=== PATIENT | female | born 1965 | race Caucasian/White ===

== ENCOUNTER → 2023-02-13 | Emergency (ER) | payer OTHER ==
[~2023-02-13] MED LIST: MORPHINE 2 MG/ML SYR ONE
--- NOTE | 2023-02-13 18:44 | RAD REPORT ---
EXAM DESCRIPTION: CT - Head Brain Wo Cont - 02/13/2023 6:30 pm CLINICAL HISTORY: TRAUMA COMPARISON: No comparisons TECHNIQUE: All CT scans are performed using dose optimization technique as appropriate and may inclu de automated exposure control or mA/KV adjustment according to patient size. FINDINGS: No intracranial hemorrhage, hydrocephalus or extra-axial fluid collection.No areas of brai n edema or evidence of midline shift. Mild chronic small vessel ischemic changes. Trace right maxillary sinus thickening. Right sphenoid sinus air-fluid level. The calvarium is intact . IMPRESSION: No acute intracranial abnormality.
--- NOTE | 2023-02-13 19:05 | RAD REPORT ---
EXAM DESCRIPTION: RAD - Knee Left 3 View - 02/13/2023 6:46 pm CLINICAL HISTORY: PAIN COMPARISON: Knee Right 3 View dated 02/13/2023 FINDINGS/IMPRESSION: No acute fracture. No malalignment. Tricompartmental degenerative changes. Join t space loss in the mediolateral compartments that is probably mild to moderate. Moderate patellofemo ral compartment spurring. A small to moderate knee effusion is present. This may be degenerative in e tiology. .
--- NOTE | 2023-02-13 19:09 | RAD REPORT ---
EXAM DESCRIPTION: RAD - Knee Right 3 View - 02/13/2023 6:46 pm CLINICAL HISTORY: PAIN COMPARISON: No comparisons FINDINGS/IMPRESSION: No acute fracture. No malalignment. Mild to moderate medial and mild lateral co mpartment narrowing. Medial and lateral compartment spurring. Moderate patellofemoral compartment deg enerative changes. No significant effusion.
--- NOTE | 2023-02-13 20:00 | EDPHYS ---
Physician Documentation [facility] Name: Margarette Schmidt Age: 58 yrs Sex: Female : 1965 Arrival Date: 02/13/2023 Time: 17:26 Bed 3 Private MD: ED Physician Kaylynn Peres HPI: 02/13 21:16 This 58 yrs old Female presents to ER via EMS with complaints of Fall Injury, Knee kb Injury. 21:16 Patient is a 58-year-old female who tripped over a toy and fell to her knees. States kb she hit her face on a printer that was near the area. Denies LOC. Reports she is on blood thinners. Reports pain with active range of motion of knees, worse in the left. Historical: - Allergies: 17:28 Phenergan; iw 17:28 sensitive to all narcotics; iw - Home Meds: 17:54 metformin 1,000 mg Oral tablet 1 tab 2 times per day [Active]; Eliquis 2.5 mg oral tl4 tablet 1 tab 2 times per day [Active]; pantoprazole 40 mg oral tablet, delayed release (enteric coated) 1 tab daily [Active]; Jardiance 25 mg oral tablet 1 tab daily [Active]; spironolactone 25 mg Oral tablet 1 tab daily [Active]; aspirin 81 mg Oral tablet, delayed release (enteric coated) 1 tab daily [Active]; albuterol sulfate 90 mcg/actuation Inhl HFA Aerosol Inhaler 1 puffs 6 hours as needed [Active]; amlodipine 10 mg tablet 1 tab daily [Active]; sertraline 100 mg oral tablet 1 tabs daily [Active]; atorvastatin 20 mg oral tablet 1 tab daily [Active]; carvedilol 6.25 mg oral tablet 1 tab 2 times per day [Active]; - PMHx: 17:28 Diabetes mellitus; Hypertensive disorder; iw - Immunization history:: Adult Immunizations up to date. - Social history:: Smoking status: Patient denies any tobacco usage or history of. ROS: 21:15 Constitutional: Negative for fever, chills, and weight loss, kb 21:15 MS/extremity: Positive for decreased range of motion, pain, swelling, tenderness, of the right knee and left knee, 21:15 All other systems are negative, Exam: 21:15 Constitutional: This is a well developed, well nourished patient who is awake, alert, kb and in no acute distress. Head/Face: Normocephalic, atraumatic. ENT: Moist Mucous membranes Cardiovascular: Regular rate Respiratory: Respirations even and unlabored. No increased work of breathing. Talking in full sentences Abdomen/GI: Soft, non-tender. No distention Neuro: Awake and alert, GCS 15, oriented to person, place, time, and situation. Moves all extremities. Normal gait. 21:15 Musculoskeletal/extremity: Extremities: grossly normal except: noted in the right knee and left knee: contusion, decreased ROM, ecchymosis, pain, swelling, tenderness, ROM: limited active range of motion due to pain, Circulation is intact in all extremities. Sensation intact. Weight bearing: can bear weight with assistance only, 21:15 Skin: injury, abrasion(s), very small abrasion noted, of the right eye, contusion(s), that are superficial, of the right eye, Vital Signs: 17:22 BP 152 / 105; Pulse 73; Resp 20; Pulse Ox 95% on R/A; Pain 8/10; tl4 17:22 BP 127 / 86; Pulse 75; Resp 20; Pulse Ox 94% ; Pain 8/10; tl4 17:28 BP 152 / 92; Pulse 65; Resp 17; Temp 99.2; Pulse Ox 96% ; Weight 94.8 kg; Height 5 ft. iw 6 in. ; Pain 10/10; 18:20 BP 147 / 69; Pulse 75; Resp 20; Pulse Ox 99% on R/A; tl4 19:30 BP 165 / 87; Pulse 77; Resp 17; Pulse Ox 99% on R/A; tl4 20:09 BP 174 / 89; Pulse 76; Resp 16; Pulse Ox 99% on R/A; tl4 17:28 Body Mass Index 33.73 (94.80 kg, 167.64 cm) iw 17:22 Pain Scale: Adult tl4 17:22 Pain Scale: Adult tl4 17:28 Pain Scale: Adult iw [place] Coma Score: 17:22 Eye Response: spontaneous(4). Motor Response: obeys commands(6). Verbal Response: tl4 oriented(5). Total: 15. MDM: 17:32 Patient medically screened. kb 21:16 Differential diagnosis: closed head injury, contusion, fracture, sprain, strain. Data kb reviewed: vital signs, nurses notes. Historians other than the Patient: EMS: [facility]. Counseling: I had a detailed discussion with the patient and/or guardian regarding the historical points, exam findings, and any diagnostic results supporting the discharge/admit diagnosis, radiology results, the need for outpatient follow up, a orthopedic surgeon, to return to the emergency department if symptoms worsen or persist or if there are any questions or concerns that arise at home. 02/13 17:35 Order name: Knee Left 3 View XRAY; Complete Time: 19:07 kb 02/13 17:35 Order name: Knee Right 3 View XRAY; Complete Time: 19:10 kb 02/13 17:35 Order name: CT Head Brain wo Cont; Complete Time: 18:54 kb 02/13 20:00 Order name: Knee Immobilizer; Complete Time: 20:37 kb 02/13 20:00 Order name: Crutches; Complete Time: 20:37 kb Administered Medications: 17:52 Drug: morphine IVP or IV 2 mg IVP once over 4 mins Route: IVP; Infused Over: 4 mins; tl4 Site: left wrist; 18:22 Follow up: Response: Pain is decreased tl4 Disposition Summary: 02/13/23 19:59 Discharge Ordered Notes: Location: Home kb Condition: Stable kb Diagnosis - Unspecified injury of head, initial encounter kb - Contusion of right knee kb - Contusion of left knee kb Followup: kb - With: Emergency Department - When: As needed - Reason: Worsening of condition Followup: kb - With: Private Physician - When: 2 - 3 days - Reason: Recheck today's complaints, Continuance of care, Re-evaluation by your physician Discharge Instructions: - Discharge Summary Sheet kb - Contusion, [id number] kb - Head Injury, Adult, [id number] kb Forms: - Medication Reconciliation Form kb - Thank You Letter kb - Antibiotic Education kb - Prescription Opioid Use kb - Patient Portal Instructions kb - Leadership Thank You Letter kb Prescriptions: - Diclofenac Sodium 75 mg Oral tablet, delayed release (enteric coated) - take 1 tablet ORAL route 2 times per day As needed; 30 tablet; Refills: 0, kb Product Selection Permitted Addendum: 02/15/2023 07:03 Co-signature as Attending Physician, Kaylynn Ja MD I agree with the assessment and g b1 plan of care. I reviewed the patient's care provided by the Advanced Practice Provider and agree with the diagnosis and treatment plan. Signatures: Dispatcher [employer] Kamala Ngo, PACKAGING SUPERVISOR-C PACKAGING SUPERVISOR-Magui Barrios, RN RN Kaylynn Pereyra MD MD gb1 [facility], [place] tl4
--- NOTE | 2023-02-13 20:00 | ER ---
Nurse's Notes [facility] Name: Margarette Schmidt Age: 58 yrs Sex: Female : 1965 Arrival Date: 02/13/2023 Time: 17:26 Bed 3 Private MD: Diagnosis: Unspecified injury of head, initial encounter;Contusion of right knee;Contusion of left knee Presentation: 02/13 17:28 Chief complaint: Patient states: Tripped over toy, fell onto B knees. Hit R side of iw face on printer. No LOC. Abrasions noted R knee and R face. L knee has significant pain EMS states: VSS. FS 121. 22g L hand, fentanyl 50 MCG and Zofran 4 MG IV given. Coronavirus screen: Client denies travel out of the [place] in the last 14 days. At this time, the client does not indicate any symptoms associated with coronavirus-19. Ebola Screen: Patient denies travel to an Ebola-affected area in the 21 days before illness onset. Initial Sepsis Screen: Does the patient meet any 2 criteria? No. Patient's initial sepsis screen is negative. Does the patient have a suspected source of infection? Yes: Bone or joint infection. Risk Assessment: Do you want to hurt yourself or someone else? Patient reports no desire to harm self or others. Onset of symptoms was February 13, 2023. 17:28 Method Of Arrival: EMS iw 17:28 Acuity: DERRELL 3 iw Triage Assessment: 17:31 General: Appears uncomfortable, Behavior is calm, cooperative, appropriate for age. iw Pain: Complains of pain in L knee Quality of pain is described as aching. Derm: Reports abrasions R knee and R side of face. Musculoskeletal: Reports pain in B knees. Injury Description: Head injury Bruise. Historical: - Allergies: 17:28 Phenergan; iw 17:28 sensitive to all narcotics; iw - Home Meds: 17:54 metformin 1,000 mg Oral tablet 1 tab 2 times per day [Active]; Eliquis 2.5 mg oral tl4 tablet 1 tab 2 times per day [Active]; pantoprazole 40 mg oral tablet, delayed release (enteric coated) 1 tab daily [Active]; Jardiance 25 mg oral tablet 1 tab daily [Active]; spironolactone 25 mg Oral tablet 1 tab daily [Active]; aspirin 81 mg Oral tablet, delayed release (enteric coated) 1 tab daily [Active]; albuterol sulfate 90 mcg/actuation Inhl HFA Aerosol Inhaler 1 puffs 6 hours as needed [Active]; amlodipine 10 mg tablet 1 tab daily [Active]; sertraline 100 mg oral tablet 1 tabs daily [Active]; atorvastatin 20 mg oral tablet 1 tab daily [Active]; carvedilol 6.25 mg oral tablet 1 tab 2 times per day [Active]; - PMHx: 17:28 Diabetes mellitus; Hypertensive disorder; iw - Immunization history:: Adult Immunizations up to date. - Social history:: Smoking status: Patient denies any tobacco usage or history of. Screenin:42 [facility] ED Fall Risk Assessment (Adult) History of falling in the last 3 months, tl4 including since admission Yes- fall prone (multiple falls) (3 pts) Confusion or Disorientation No (0 pts) Intoxicated or Sedated No (0 pts) Impaired Gait No (0 pts) Mobility Assist Device Used No (0 pt) Altered Elimination No (0 pt) Score/Fall Risk Level 3 or more points = High Risk Oriented to surroundings, Maintained a safe environment, Educated pt \T\ family on fall prevention, incl call for assistance when getting out of bed, Assessed \T\ reinforced patient's understanding of fall precautions, Provided non-skid footwear, Hourly rounding (assess needs \T\ fall precautionary measures) done, Used ambulatory aids as needed (educated on \T\ assisted with), Used gait belt as appropriate. Abuse screen: Denies threats or abuse. Denies injuries from another. Nutritional screening: No deficits noted. Tuberculosis screening: No symptoms or risk factors identified. Assessment: 17:40 General: Appears uncomfortable, Behavior is cooperative. Pain: Complains of pain in tl4 left knee Pain radiates to up the back of her left leg Pain at worst was 8 out of 10 on a pain scale. Neuro: No deficits noted. Cardiovascular: No deficits noted. Respiratory: No deficits noted. GI: No deficits noted. : No deficits noted. EENT: No deficits noted. Vital Signs: 17:22 BP 152 / 105; Pulse 73; Resp 20; Pulse Ox 95% on R/A; Pain 8/10; tl4 17:22 BP 127 / 86; Pulse 75; Resp 20; Pulse Ox 94% ; Pain 8/10; tl4 17:28 BP 152 / 92; Pulse 65; Resp 17; Temp 99.2; Pulse Ox 96% ; Weight 94.8 kg; Height 5 ft. iw 6 in. ; Pain 10/10; 18:20 BP 147 / 69; Pulse 75; Resp 20; Pulse Ox 99% on R/A; tl4 19:30 BP 165 / 87; Pulse 77; Resp 17; Pulse Ox 99% on R/A; tl4 20:09 BP 174 / 89; Pulse 76; Resp 16; Pulse Ox 99% on R/A; tl4 17:28 Body Mass Index 33.73 (94.80 kg, 167.64 cm) iw 17:22 Pain Scale: Adult tl4 17:22 Pain Scale: Adult tl4 17:28 Pain Scale: Adult iw [place] Coma Score: 17:22 Eye Response: spontaneous(4). Motor Response: obeys commands(6). Verbal Response: tl4 oriented(5). Total: 15. ED Course: 17:27 Patient arrived in ED. iw 17:28 Arm band placed on Patient placed in an exam room, on a stretcher. iw 17:31 Triage completed. iw 17:32 [facility] Bullock FNP-C [facility] kb 17:32 Kaylynn Peres MD is Attending Physician. kb 17:43 Patient has correct armband on for positive identification. Placed in gown. Bed in low tl4 position. Call light in reach. Side rails up X2. Provided Education on: ED process. Client placed on continuous cardiac and pulse oximetry monitoring. NIBP monitoring applied. Door closed. Lights dimmed. Warm blanket given. 17:44 No provider procedures requiring assistance completed. tl4 17:44 Maintain EMS IV. Dressing intact. Good blood return noted. Site clean \T\ dry. Gauge \T\ tl 4 site: 22g left wrist. 18:31 CT Head Brain wo Cont In Process Unspecified. EDMS 18:48 Knee Left 3 View XRAY In Process Unspecified. EDMS 18:48 Knee Right 3 View XRAY In Process Unspecified. EDMS 20:44 IV discontinued, intact, bleeding controlled, No redness/swelling at site. Pressure jj7 dressing applied. Administered Medications: 17:52 Drug: morphine IVP or IV 2 mg IVP once over 4 mins Route: IVP; Infused Over: 4 mins; tl4 Site: left wrist; 18:22 Follow up: Response: Pain is decreased tl4 Medication: 17:42 VIS not applicable for this client. tl4 Outcome: 19:59 Discharge ordered by . ned 20:44 Discharged to home via wheelchair, jj7 20:44 Condition: good 20:44 Discharge instructions given to patient, Instructed on discharge instructions, medication usage, control, Demonstrated understanding of instructions, follow-up care, crutch walking, Prescriptions given X 1, 20:45 Patient left the ED. jj7 Signatures: Dispatcher [employer] EDMS Kamala Bullock, REMOTELY PILOTED VEHICLE CONTROLLER-C REMOTELY PILOTED VEHICLE CONTROLLER-Magui Barrios, RN Miriam Silva RN RN jj7 [place], [place] tl4 Corrections: (The following items were deleted from the chart) 17:54 17:42 BP 152 / 105; Pulse 73bpm; Resp 20bpm; Pulse Ox 95% RA; Pain 8/10, Adult; tl4 tl4 17:54 17:42 GCS: 15, tl4 tl4
[2023-02-13 23:36] VITALS: TEMP 99.2; O2SAT 99
[2023-02-13 23:46] VITALS: BP 174/89
== END ==
LOC: ER 17:26
DX: S80.02XA Contusion of left knee, initial encounter (principal); S80.01XA Contusion of right knee, initial encounter; S09.90XA Unspecified injury of head, initial encounter; W01.198A Fall on same level from slipping, tripping and stumbling with subsequent striking against other object, initial encounter; E11.9 Type 2 diabetes mellitus without complications; I10 Essential (primary) hypertension; Z79.82 Long term (current) use of aspirin; Z79.84 Long term (current) use of oral hypoglycemic drugs; Z79.899 Other long term (current) drug therapy
CPT/HCPCS: 70450; 73562 ×2; 96374; 99284; J2270

== ENCOUNTER 2024-01-29 10:06 | Inpatient (IN) | payer OTHER ==
[2024-01-29] MEDS ORDERED: FENTANYL CITR 100 MCG/2 ML ONE (10:47)
[2024-01-29] MEDS ORDERED: ONDANSETRON 4 MG/2 ML VIAL ONE ×2 (10:48→15:35)
[2024-01-29] MEDS ORDERED: FAMOTIDINE 20 MG/2 ML VIAL IV ONE (10:48)
[2024-01-29] MEDS ORDERED: NA CHLORIDE 0.9% 3,000 ML ONE (10:48)
[2024-01-29 10:54] LABS: Absolute Basophils 0.1 K/uL (0-0.5); Absolute Lymphocytes (CBC) 0.8 K/uL (0.7-4.9); Absolute Neutrophil 15.4 K/uL (1.8-8.0); Basophils % 0.7 % (0-1.3); Eosinophils % 0.2 % (0-4.4); Hematocrit 42.5 % (36.0-45.0); Hemoglobin 12.9 g/dL (12.0-15.0); Lymphocytes % 4.7 % (15.3-44.8); MCH 23.6 pg (27.0-35.0); MCHC 30.4 g/dL (32.0-36.0); MCV 77.8 fL (80-100); MPV 9.1 fL (7.6-11.3); Monocytes % 5.6 % (3.3-12.3); Neutrophils % 88.8 % (41.7-73.7); Platelets 215 thou/uL (152-406); Protime INR 0.98; RBC Red Blood Cell Count 5.47 M/uL (3.86-4.86); Red Cell Distribution Width 16.6 % (12.1-15.2)
[2024-01-29 10:55] LABS: Blood Morphology Comment NOT SEEN (NOT SEEN); Platelet Estimate ADEQ; White Blood Cell Scan OK (OK)
[2024-01-29 11:10] LABS: ALT/SGPT 24 U/L (13-56); AST/SGOT 24 U/L (15-37); Albumin 3.9 g/dL (3.4-5.0); Alkaline Phosphatase 110 U/L (45-117); BUN Blood Urea Nitrogen 9 mg/dL (7-18); Bicarbonate 25 mEq/L (21-32); Bilirubin Total 0.4 mg/dL (0.2-1.0); Globulin 4.1 g/dL (2.3-3.5); Glomerular Filtration Rate 87 ml/min (=/>90); Glucose Level 185 mg/dL (74-106); Lipase 33 U/L (13-75); Magnesium 1.6 mg/dL (1.6-2.4); NT PRO-BNP 360 pg/mL (<125); Sodium Level 135 mEq/L (136-145); Troponin High Sensitivity 5.7 pg/mL (<58.9)
[2024-01-29 11:16] LABS: Bilirubin Direct < 0.2 mg/dL (0-0.2); Bilirubin Indirect, Calculated 0.2 mg/dL (0.2-0.8)
--- NOTE | 2024-01-29 11:16 | RAD REPORT ---
EXAM: Right upper quadrant ultrasound. CLINICAL HISTORY: ABD PAIN COMPARISON: None. FINDINGS: Gallbladder: Normal. Bile ducts: No intrahepatic or extrahepatic biliary dilatation. Common bile duct measures 4 mm. Limited imaging of the liver shows no concerning finding. IMPRESSION: Unremarkable exam.
--- NOTE | 2024-01-29 11:17 | RAD REPORT ---
EXAMINATION: ONE VIEW CHEST XR CLINICAL INDICATION: COUGH TECHNIQUE: Frontal chest projection is submitted. Examination is limited by patient positioning and t echnique. COMPARISON: No prior exam. FINDINGS: Mild patchy opacity is noted in the left lung, greatest in the left perihilar region suspicious for i nfection/pneumonia. The lungs are otherwise clear. The heart is upper limit of normal in size. No displaced fractures identified.
--- NOTE | 2024-01-29 11:20 | RAD REPORT ---
EXAM: CT CHEST, ABDOMEN AND PELVIS WITHOUT CONTRAST CLINICAL INDICATION: PAIN TECHNIQUE: CT chest, abdomen and pelvis was performed without contrast, as per department protocol. A xial, sagittal and coronal reconstructions were obtained. One or more of the following dose reduction techniques were used: Automated exposure control, adjustment of the mA and/or kV according to patient size, and/or iterative reconstruction. Unless otherwise specified, incidental findings do not require dedicated imaging follow-up. Examination is limited by the lack of intravenous contrast material. COMPARISON: No prior exam. FINDINGS: LUNGS: Small area of lung consolidation is seen in the lingula suspicious for possible pneumonia. The re is a small nodular component slightly superiorly measuring 9 mm. Lungs otherwise clear. PLEURA: No pleural effusion. No pneumothorax. MEDIASTINUM AND LYMPH NODES: No mediastinal mass or fluid collection. Normal size mediastinal, hilar, and axillary lymph nodes. OSSEOUS STRUCTURES AND CHEST WALL: Intact. LIVER: There is a mild nodular contour to the liver. Grossly unremarkable gallbladder. PANCREAS: No mass, ductal dilation, or gaetano-pancreatic fluid. SPLEEN: Normal size. No focal lesion. ADRENALS: Normal; no mass. KIDNEYS: Normal size and contour. No hydronephrosis. URINARY BLADDER: Normal contour. GASTROINTESTINAL TRACT: No bowel obstruction, free air, significant free fluid or abscess. Mild sig moid diverticulosis coli without diverticulitis. APPENDIX: Appendix not visualized, but no inflammatory changes in region of appendix. LYMPH NODES: No lymphadenopathy. MUSCULOSKELETAL: Mild lower lumbar spondylosis. OTHER: IMPRESSION: Small area of lung consolidation in lingula could be infection/pneumonia. Mild liver cirrhosis.
[2024-01-29] MEDS ORDERED: ACETAMINOPHEN 500 MG TAB ONE (11:39)
[2024-01-29] MEDS ORDERED: PIPERACIL/TAZO 3.375 GM VIAL IV ONE (11:40)
[2024-01-29] MEDS ORDERED: NA CHLORIDE 0.9% 100 ML ONE (11:40)
--- NOTE | 2024-01-29 13:34 | EDPHYS ---
Physician Documentation [facility] Name: Margarette Schmidt Age: 58 yrs Sex: Female : 1965 Arrival Date: 01/29/2024 Time: 10:06 Bed 7 Private MD: ED Physician Raymundo Díaz HPI: 01/28 13:24 This 58 yrs old Female presents to ER via EMS with complaints of Nausea. eze 13:24 The patient presents to the emergency department with nausea, vomiting, that is eze continuous. Onset: The symptoms/episode began/occurred this morning, today. Historical: - Allergies: 10:10 Phenergan; aa5 10:10 sensitive to all narcotics; aa5 - PMHx: 10:10 diabetes mellitus; Hypertensive disorder; Chronic knee pain (Unknown); aa5 - Immunization history:: Adult Immunizations up to date. - Infectious Disease History:: Denies. - Family history:: not pertinent. - Social history:: Smoking status: Patient denies any tobacco usage or history of. ROS: 13:24 Eyes: Negative for injury, pain, redness, and discharge, ENT: Negative for injury, eze pain, and discharge, Neck: Negative for injury, pain, and swelling, Back: Negative for injury and pain, : Negative for injury, bleeding, discharge, and swelling, MS/Extremity: Negative for injury and deformity, Skin: Negative for injury, rash, and discoloration, Neuro: Negative for headache, weakness, numbness, tingling, and seizure, Psych: Negative for depression, anxiety, suicide ideation, homicidal ideation, and hallucinations, Allergy/Immunology: Negative for hives, rash, and allergies, Endocrine: Negative for neck swelling, polydipsia, polyuria, polyphagia, and marked weight changes, 13:24 Constitutional: Positive for body aches, chills, fatigue, fever, malaise, 13:24 Cardiovascular: Positive for palpitations, 13:24 Respiratory: Positive for cough, "sounds productive", 13:24 Abdomen/GI: Positive for abdominal pain, nausea and vomiting, of the epigastric area and right upper quadrant, 13:24 Neuro: Positive for dizziness, weakness, Exam: 13:24 Constitutional: This is a well developed, well nourished patient who is awake, alert, eze and in no acute distress. Head/Face: Normocephalic, atraumatic. Eyes: Pupils equal round and reactive to light, extra-ocular motions intact. Lids and lashes normal. Conjunctiva and sclera are non-icteric and not injected. Cornea within normal limits. Periorbital areas with no swelling, redness, or edema. ENT: Nares patent. No nasal discharge, no septal abnormalities noted. Tympanic membranes are normal and external auditory canals are clear. Oropharynx with no redness, swelling, or masses, exudates, or evidence of obstruction, uvula midline. Mucous membranes moist. Neck: Trachea midline, no thyromegaly or masses palpated, and no cervical lymphadenopathy. Supple, full range of motion without nuchal rigidity, or vertebral point tenderness. No Meningismus. Chest/axilla: Normal chest wall appearance and motion. Nontender with no deformity. No lesions are appreciated. Back: No spinal tenderness. No costovertebral tenderness. Full range of motion. Female : Normal external genitalia. Skin: Warm, dry with normal turgor. Normal color with no rashes, no lesions, and no evidence of cellulitis. MS/ Extremity: Pulses equal, no cyanosis. Neurovascular intact. Full, normal range of motion., bilateral aka Neuro: Awake and alert, GCS 15, oriented to person, place, time, and situation. Cranial nerves II-XII grossly intact. Motor strength 5/5 in all extremities. Sensory grossly intact. Cerebellar exam normal. Normal gait. Psych: Awake, alert, with orientation to person, place and time. Behavior, mood, and affect are within normal limits. 13:24 Cardiovascular: Rate: tachycardic, actual rate is 105 bpm, Rhythm: regular, Pulses: Pulses are 4+ in bilateral radial, brachial, femoral, popliteal, posterior tibial and and dorsalis pedis arteries.. Heart sounds: normal, Edema: is not appreciated, JVD: is not appreciated, 13:24 ECG was reviewed by the Attending Physician. Vital Signs: 10:10 BP 176 / 98; Pulse 105; Resp 18 S; Temp 99(O); Pulse Ox 95% on R/A; aa5 10:38 BP 185 / 96 LA; aa5 10:41 Weight 92.99 kg; Height 5 ft. 6 in. ; aa5 10:41 BP 174 / 95 RA; Pulse Ox 89% on R/A; aa5 10:43 Pulse Ox 95% on 3 lpm NC; aa5 11:19 BP 155 / 82; Pulse 110; Resp 24 S; Temp 103(O); Pulse Ox 99% on 3 lpm NC; aa5 12:33 BP 143 / 66; Pulse 105; Resp 18 S; Temp 100(O); Pulse Ox 98% on 3 lpm NC; aa5 13:30 BP 146 / 72; Pulse 103; Resp 17 S; Pulse Ox 99% on 3 lpm NC; aa5 14:00 BP 122 / 79; Pulse 96; Resp 20 S; Temp 99.5(O); Pulse Ox 97% on 3 lpm NC; aa5 15:40 BP 122 / 66; Pulse 93; Resp 18 S; Temp 99(O); Pulse Ox 96% on 2 lpm NC; aa5 16:57 BP 113 / 61; Pulse 89; Resp 16 S; Pulse Ox 97% on 2 lpm NC; aa5 17:00 BP 127 / 57; Pulse 88; Resp 18; Pulse Ox 97% on 2 lpm NC; al5 18:00 BP 116 / 60; Pulse 83; Resp 17; Pulse Ox 96% on 2 lpm NC; al5 19:00 BP 128 / 62; Pulse 85; Resp 17; Pulse Ox 98% on 2 lpm NC; al5 20:00 BP 124 / 60; Pulse 85; Resp 18; Pulse Ox 98% on 2 lpm NC; al5 10:41 Body Mass Index 33.09 (92.99 kg, 167.64 cm) aa5 MDM: 10:08 Medical Screening Exam initiated eze 13:27 Antibiotic administration: Rocephin and Zithromax given. Differential diagnosis: [facility] asthma, Bronchitis CHF exacerbation, Chronic Obstructive Pulmonary Disease Nonspecific abd pain, gastritis, cholecystitis, pancreatitis, gastroenteritis, pneumonia, pulmonary edema, reactive airway disease, Sepsis Unstable Angina. Immunization status: Influenza vaccine: within last 5 years. Data reviewed: vital signs, nurses notes, lab test result(s), EKG, radiologic studies, CT scan, plain films, ultrasound. Consideration of Admission/Observation Patient was admitted/placed on observation. Escalation of care including admission/observation considered. I considered the following discharge prescriptions or medication management in the emergency department Medications were administered in the Emergency Department. See MAR. Independent interpretation of the following test(s) in the Emergency Department EKG: See my EKG interpretation above. Test considered but Not performed: Ultrasound no mrcp. Historians other than the Patient: pt well informed. Care significantly affected by the following chronic conditions: Diabetes, Hypertension, Obesity, knee pain. Counseling: I had a detailed discussion with the patient and/or guardian regarding the historical points, exam findings, and any diagnostic results supporting the discharge/admit diagnosis, lab results, radiology results, the need for further work-up and treatment in the hospital. 14:31 Post IV fluid administration reassessment for Sepsis: Client prescribed 30 mL/kg IVF. [facility] Sepsis focused reassessment complete. 01/28 10:15 Order name: Basic Metabolic Panel; Complete Time: 13:19 [facility] 01/28 10:15 Order name: CBC with Diff; Complete Time: 10:56 [facility] 01/28 10:15 Order name: LFT's; Complete Time: 13:19 [facility] 01/28 10:15 Order name: Magnesium; Complete Time: 13:19 [facility] 01/28 10:15 Order name: NT PRO-BNP; Complete Time: 13:19 [facility] 01/28 10:15 Order name: PT-INR; Complete Time: 10:56 [facility] 01/28 10:15 Order name: Troponin HS; Complete Time: 13:19 [facility] 01/28 10:15 Order name: Lipase; Complete Time: 13:19 [facility] 01/28 10:15 Order name: Urinalysis w/ reflexes; Complete Time: 15:15 [facility] 01/28 10:56 Order name: CBC Smear Scan; Complete Time: 10:56 [facility] 01/28 10:57 Order name: Blood Culture Adult (2) [facility] 01/28 10:57 Order name: Lactate w/ 2H reflex if indic.; Complete Time: 13:19 [facility] 01/28 13:22 Order name: Flu; Complete Time: 15:15 [facility] 01/28 13:22 Order name: SARS RAPID; Complete Time: 15:15 [facility] 01/28 14:45 Order name: T4 Free [facility] 01/28 14:45 Order name: Thyroid Stimulating Hormone [facility] 01/28 14:45 Order name: Basic Metabolic Panel [facility] 01/28 14:45 Order name: Basic Metabolic Panel [facility] 01/28 14:46 Order name: Basic Metabolic Panel [facility] 01/28 14:46 Order name: Basic Metabolic Panel [facility] 01/28 14:46 Order name: Basic Metabolic Panel [facility] 01/28 14:46 Order name: Basic Metabolic Panel [facility] 01/28 14:46 Order name: Basic Metabolic Panel [facility] 01/28 14:46 Order name: Basic Metabolic Panel EDMS 01/28 14:46 Order name: CBC with Automated Diff [facility] 01/28 14:46 Order name: CBC with Automated Diff [facility] 01/28 14:46 Order name: CBC with Automated Diff EDMS 01/28 14:46 Order name: CBC with Automated Diff EDMS 01/28 14:46 Order name: CBC with Automated Diff EDMS 01/28 14:46 Order name: CBC with Automated Diff EDMS 01/28 14:46 Order name: CBC with Automated Diff EDMS 01/28 14:46 Order name: CBC with Automated Diff EDMS 01/28 14:46 Order name: Magnesium EDMS 01/28 14:46 Order name: Magnesium EDMS 01/28 14:46 Order name: Magnesium EDMS 01/28 14:46 Order name: Magnesium EDMS 01/28 14:46 Order name: Magnesium EDMS 01/28 14:46 Order name: Magnesium EDMS 01/28 14:46 Order name: Magnesium EDMS 01/28 14:46 Order name: Magnesium EDMS 01/28 14:46 Order name: Phosphorus EDMS 01/28 14:46 Order name: Phosphorus EDMS 01/28 14:46 Order name: Phosphorus EDMS 01/28 14:46 Order name: Phosphorus EDMS 01/28 14:46 Order name: Phosphorus EDMS 01/28 14:46 Order name: Phosphorus EDMS 01/28 14:46 Order name: Phosphorus EDMS 01/28 14:46 Order name: Phosphorus EDMS 01/28 14:46 Order name: Troponin High Sensitivity EDMS 01/28 14:46 Order name: Troponin High Sensitivity EDMS 01/28 14:46 Order name: Troponin High Sensitivity EDMS 01/28 10:15 Order name: XRAY Chest (1 view); Complete Time: 13:19 [facility] 01/28 10:37 Order name: CT Chest Abdomen Pelvis W/O Contrast; Complete Time: 13:19 eze 01/28 10:37 Order name: US Abdomen Limited; Complete Time: 13:19 eze 01/28 10:15 Order name: Cardiac monitoring; Complete Time: 10:37 [facility] 01/28 10:15 Order name: EKG - Nurse/Tech; Complete Time: 10: [facility] 01/28 10:15 Order name: IV Saline Lock; Complete Time: : [facility] 01/28 10:15 Order name: Labs collected and sent; Complete Time: 10: [facility] 01/28 10:15 Order name: O2 Per Protocol; Complete Time: : [facility] 01/28 10:15 Order name: O2 Sat Monitoring; Complete Time: : [facility] 01/28 10:37 Order name: Bilateral blood pressure; Complete Time: 10:41 [facility] EC:24 Rate is 105 beats/min. Rhythm is regular. QRS Norris is Normal. GA interval is normal. eze QRS interval is normal. QT interval is normal. No Q waves. T waves are Normal. No ST changes noted. Clinical impression: Sinus tachycardia and No evidence of ischemia. Interpreted by me. Reviewed by me. Administered Medications: 10:37 Not Given (Duplicate Order): ns 0.9% 1000 ml IV at 1000 ml once; to be given as a bolus eze over 60 minutes 11:16 Drug: Ondansetron IVP 4 mg IVP once; over 2 minutes Route: IVP; Site: right forearm; aa5 11:20 Follow up: Response: No adverse reaction aa5 11:16 Drug: Famotidine IVP 20 mg IVP once; dilute with 10 mL 0.9% NaCl; give over 2 minutes aa5 Route: IVP; Site: right forearm; 11:20 Follow up: Response: No adverse reaction aa5 11:16 Drug: fentaNYL (PF) IVP 50 mcg IVP once Route: IVP; Site: right forearm; aa5 11:20 Follow up: Response: No adverse reaction aa5 11:16 Drug: NS 0.9% IV (30 ml/kg) 30 ml/kg IV at bolus once; Sepsis Protocol; to be given as aa5 a bolus over 90 minutes Route: IV; Rate: bolus; Site: right forearm; 12:46 Follow up: IV Status: Completed infusion; IV Intake: 2789ml aa5 11:25 CANCELLED (Duplicate Order): acetaminophensuppository 650 mg GA once eze 11:42 Drug: Acetaminophen PO 1000 mg PO once Route: PO; aa5 12:34 Follow up: Response: Temperature is decreased aa5 13:40 Drug: Piperacillin-Tazobactam IVPB 3.375 grams IVPB once over 60 mins; (mix in NS 100 aa5 mL) Route: IVPB; Infused Over: 60 mins; Site: right forearm; 14:10 Follow up: Response: No adverse reaction aa5 14:40 Follow up: Response: No adverse reaction; IV Status: Completed infusion aa5 14:41 Drug: Zithromax IVPB 500 mg IVPB once over 1 hrs; mix in 250 mL NS Route: IVPB; Infused aa5 Over: 1 hrs; Site: right forearm; 15:41 Follow up: IV Status: Completed infusion; IV Intake: 250ml aa5 14:41 Drug: Magnesium Sulfate IVPB 2 grams IVPB once over 2 hrs Route: IVPB; Infused Over: 2 aa5 hrs; Site: right forearm; 16:41 Follow up: IV Status: Completed infusion aa5 15:40 Drug: Solu-CORTEF IVP 100 mg IVP once Route: IVP; Site: right forearm; aa5 16:00 Follow up: Response: No adverse reaction aa5 15:46 Drug: morphine IVP or IV 2 mg IVP once over 4 mins Route: IVP; Infused Over: 4 mins; aa5 Site: right forearm; 16:00 Follow up: Response: No adverse reaction aa5 15:46 Drug: Ondansetron IVP 4 mg IVP once; over 2 minutes Route: IVP; Site: right forearm; aa5 16:00 Follow up: Response: No adverse reaction aa5 Disposition Summary: 01/29/24 13:34 Hospitalization Ordered Notes: Hospitalization Status: Inpatient Admission eze Provider: Memo Ng cha Condition: Fair eze Problem: new eze Symptoms: have improved eze Bed/Room Type: Standard eze Location: Telemetry/MedSurg (Inpatient)(01/29/24 18:47) ja1 Room Assignment: [facility](01/29/24 18:47) ja Diagnosis - Fever, unspecified eze - Pneumonia due to other specified bacteria eze - Other malaise and fatigue eze - Elevated white blood cell count eze Forms: - Medication Reconciliation Form eze - SBAR form eze - Leadership Thank You Letter eze Signatures: Dispatcher [employer] Raymundo Malcolm MD MD cha Calderon, Audri RN RN aa5 Efrain Joe RN RN jl7 Ramesh Joya, RN RN ja1 Saritha May, RN RN al5 Corrections: (The following items were deleted from the chart) 10:16 10:16 BASIC METABOLIC PANEL+C.LAB.BRZ ordered. EDMS EDMS 10:16 10:16 CBC+H.LAB.BRZ ordered. EDMS EDMS 10:16 10:16 HEPATIC FUNCTION+C.LAB.BRZ ordered. EDMS EDMS 10:16 10:16 MAGNESIUM+C.LAB.BRZ ordered. EDMS EDMS 10:16 10:16 PROBNP+C.LAB.BRZ ordered. EDMS EDMS 10:16 10:16 PROTIME (+INR)+COAG.LAB.BRZ ordered. EDMS EDMS 10:16 10:16 Troponin High Sensitivity+C.LAB.BRZ ordered. EDMS EDMS 10:16 10:16 LIPASE+C.LAB.BRZ ordered. EDMS EDMS 10:16 10:16 Urinalysis+U.LAB.BRZ ordered. EDMS EDMS 10:16 10:16 Chest Single View+RAD.RAD.BRZ ordered. EDMS EDMS 10:38 10:38 Chest Abdomen Pelvis Wo Con+CT.RAD.BRZ ordered. EDMS EDMS 10:38 10:38 Abdomen Limited+US.RAD.BRZ ordered. EDMS EDMS 10:57 10:57 BLOOD CULTURE*+BA.LAB.BRZ ordered. EDMS EDMS 10:57 10:57 LACTATE+C.LAB.BRZ ordered. EDMS EDMS 11:19 11:12 Head C Spine MPR Wo Con+CT.RAD.BRZ ordered. EDMS EDMS 11:25 10:57 Acetaminophen GA Suppository 650 mg GA once ordered. eze eze 17:46 13:34 Telemetry/MedSurg (Inpatient) eze jl7 17:46 13:34 eze jl7 18:47 17:46 [facility] ER HOLD jl ja 18:47 17:46 [facility]- [facility] ja
--- NOTE | 2024-01-29 13:34 | ER ---
Nurse's Notes [facility] Name: Margarette Schmidt Age: 58 yrs Sex: Female : 1965 Arrival Date: 01/29/2024 Time: 10:06 Bed 7 Private MD: Diagnosis: Fever, unspecified;Pneumonia due to other specified bacteria;Other malaise and fatigue;Elevated white blood cell count Presentation: 01/28 10:10 Chief complaint: Patient states: "I woke up nauseous today and my whole body hurts". aa5 10:10 Coronavirus screen: muscle pain. Ebola Screen: Patient denies travel to an [facility] Ebola-affected area in the 21 days before illness onset. Initial Sepsis Screen: Does the patient meet any 2 criteria? HR > 90 bpm. Does the patient have a suspected source of infection? No. Patient's initial sepsis screen is negative. Risk Assessment: Do you want to hurt yourself or someone else? Patient reports no desire to harm self or others. Onset of symptoms was January 29, 2024. 10:10 Acuity: DERRELL 3 aa5 10:10 Method Of Arrival: EMS: [facility] aa5 10:10 Care prior to arrival: Glucose check: 170. aa5 Historical: - Allergies: 10:10 Phenergan; aa5 10:10 sensitive to all narcotics; aa5 - PMHx: 10:10 diabetes mellitus; Hypertensive disorder; Chronic knee pain (Unknown); aa5 - Immunization history:: Adult Immunizations up to date. - Infectious Disease History:: Denies. - Family history:: not pertinent. - Social history:: Smoking status: Patient denies any tobacco usage or history of. Screenin:10 [facility] ED Fall Risk Assessment (Adult) History of falling in the last 3 months, aa5 including since admission No falls in past 3 months (0 pts) Confusion or Disorientation No (0 pts) Intoxicated or Sedated No (0 pts) Impaired Gait No (0 pts) Mobility Assist Device Used No (0 pt) Altered Elimination No (0 pt) Score/Fall Risk Level 0 - 2 = Low Risk Oriented to surroundings, Maintained a safe environment, Educated pt \\T\\ family on fall prevention, incl call for assistance when getting out of bed. Abuse screen: Denies threats or abuse. Nutritional screening: No deficits noted. Tuberculosis screening: No symptoms or risk factors identified. Assessment: 10:10 General: Appears uncomfortable, ill, Behavior is calm, cooperative, Pt noted to be aa5 shaking, reports chills. . Pain: Complains of pain in "whole body", upper abdomen, chest, and upper back. Pain currently is 10 out of 10 on a pain scale. Quality of pain is described as aching, Pain began this morning Is continuous. Neuro: Level of Consciousness is awake, alert, obeys commands, Oriented to person, place, time, situation. Cardiovascular: Heart tones S1 S2 present Rhythm is regular. Respiratory: Airway is patent Respiratory effort is even, unlabored, Respiratory pattern is regular, symmetrical, Denies cough, shortness of breath. GI: Abdomen is round Bowel sounds present X 4 quads. Abd is soft and non tender X 4 quads. Reports nausea, Patient currently denies diarrhea, vomiting. : No signs and/or symptoms were reported regarding the genitourinary system. EENT: No signs and/or symptoms were reported regarding the EENT system. Derm: Skin is pink, warm \\T\\ dry. Musculoskeletal: Range of motion: intact in all extremities. 11:19 General: Appears uncomfortable, ill. Neuro: Level of Consciousness is awake, alert, aa5 obeys commands, Oriented to person, place, time, situation. Respiratory: Airway is patent Respiratory effort is even, unlabored, Respiratory pattern is tachypnea. Derm: Skin is dry, Skin is normal, Skin temperature is hot. 12:45 Reassessment: Patient is alert, oriented x 3, equal unlabored respirations, skin aa5 warm/dry/pink. Patient states feeling better. Pt cleaned of urinary incontinence . 13:00 Reassessment: Pt cleaned of urinary incontinence. . aa5 13:00 Reassessment: Patient is alert, oriented x 3, equal unlabored respirations, skin aa5 warm/dry/pink. 14:00 Reassessment: Patient is alert, oriented x 3, equal unlabored respirations, skin aa5 warm/dry/pink. Pt cleaned of urinary incontinence, clean brief applied. . 15:00 Reassessment: Purewick placed to suction for elimination needs, clean brief in place. . aa5 15:40 Reassessment: Patient is alert, oriented x 3, equal unlabored respirations, skin aa5 warm/dry/pink. Pt c/o back pain. 16:19 Reassessment: Pt currently sleeping, equal and unlabored respirations, skin is aa5 pink/warm/dry. . 17:24 General: Appears in no apparent distress. Behavior is calm, cooperative. Pain: al5 Complains of pain in generalized Quality of pain is described as aching. Neuro: Level of Consciousness is awake, alert, obeys commands, Oriented to person, place, time, situation. Cardiovascular: Capillary refill < 3 seconds Patient's skin is warm and dry. Respiratory: Airway is patent Respiratory effort is even, unlabored, Respiratory pattern is regular, symmetrical. GI: Abdomen is round non-distended. : No signs and/or symptoms were reported regarding the genitourinary system. EENT: No signs and/or symptoms were reported regarding the EENT system. Derm: Skin is intact, is healthy with good turgor, Skin is pink, warm \\T\\ dry. normal. Musculoskeletal: No deficits noted. 18:47 Reassessment: Patient appears in no apparent distress at this time. No changes from al5 previously documented assessment. Patient and/or family updated on plan of care and expected duration. Pain level reassessed. Patient is alert, oriented x 3, equal unlabored respirations, skin warm/dry/pink. 20:58 Reassessment: Patient appears in no apparent distress at this time. No changes from al5 previously documented assessment. Patient and/or family updated on plan of care and expected duration. Pain level reassessed. Patient is alert, oriented x 3, equal unlabored respirations, skin warm/dry/pink. Vital Signs: 10:10 BP 176 / 98; Pulse 105; Resp 18 S; Temp 99(O); Pulse Ox 95% on R/A; aa5 10:38 BP 185 / 96 LA; aa5 10:41 Weight 92.99 kg; Height 5 ft. 6 in. ; aa5 10:41 BP 174 / 95 RA; Pulse Ox 89% on R/A; aa5 10:43 Pulse Ox 95% on 3 lpm NC; aa5 11:19 BP 155 / 82; Pulse 110; Resp 24 S; Temp 103(O); Pulse Ox 99% on 3 lpm NC; aa5 12:33 BP 143 / 66; Pulse 105; Resp 18 S; Temp 100(O); Pulse Ox 98% on 3 lpm NC; aa5 13:30 BP 146 / 72; Pulse 103; Resp 17 S; Pulse Ox 99% on 3 lpm NC; aa5 14:00 BP 122 / 79; Pulse 96; Resp 20 S; Temp 99.5(O); Pulse Ox 97% on 3 lpm NC; aa5 15:40 BP 122 / 66; Pulse 93; Resp 18 S; Temp 99(O); Pulse Ox 96% on 2 lpm NC; aa5 16:57 BP 113 / 61; Pulse 89; Resp 16 S; Pulse Ox 97% on 2 lpm NC; aa5 17:00 BP 127 / 57; Pulse 88; Resp 18; Pulse Ox 97% on 2 lpm NC; al5 18:00 BP 116 / 60; Pulse 83; Resp 17; Pulse Ox 96% on 2 lpm NC; al5 19:00 BP 128 / 62; Pulse 85; Resp 17; Pulse Ox 98% on 2 lpm NC; al5 20:00 BP 124 / 60; Pulse 85; Resp 18; Pulse Ox 98% on 2 lpm NC; al5 10:41 Body Mass Index 33.09 (92.99 kg, 167.64 cm) aa5 ED Course: 10:08 Patient arrived in ED. eb 10:08 Raymundo Díaz MD is Attending Physician. eze 10:10 Sandy Monteiro, RN is Primary Nurse. aa5 10:10 Arm band placed on Patient placed in an exam room, on a stretcher. aa5 10:10 Patient has correct armband on for positive identification. Bed in low position. Call aa5 light in reach. Side rails up X2. Client placed on continuous cardiac and pulse oximetry monitoring. NIBP monitoring applied. surveillance system monitor on. Pulse ox on. NIBP on. 10:22 Triage completed. aa5 10:35 Initial lab(s) drawn, by me, sent to lab. Inserted saline lock: 20 gauge in right aa5 forearm, using aseptic technique. Blood collected. Flushed with 10 mL NS. 10:51 CT Chest Abdomen Pelvis W/O Contrast In Process Unspecified. EDMS 11:00 US Abdomen Limited In Process Unspecified. EDMS 11:05 XRAY Chest (1 view) In Process Unspecified. EDMS 12:00 First set of blood cultures drawn by lab staff. aa5 13:33 Memo Ng is Hospitalizing Provider. eze 13:37 Second set of blood cultures drawn by ED staff. aa5 17:06 Report given to MINI Melara. aa5 19:12 Provided Education on: need for admission. al5 19:12 No provider procedures requiring assistance completed. Patient admitted, IV remains in al5 place. Administered Medications: 10:37 Not Given (Duplicate Order): ns 0.9% 1000 ml IV at 1000 ml once; to be given as a bolus eze over 60 minutes 11:16 Drug: Ondansetron IVP 4 mg IVP once; over 2 minutes Route: IVP; Site: right forearm; aa5 11:20 Follow up: Response: No adverse reaction aa5 11:16 Drug: Famotidine IVP 20 mg IVP once; dilute with 10 mL 0.9% NaCl; give over 2 minutes aa5 Route: IVP; Site: right forearm; 11:20 Follow up: Response: No adverse reaction aa5 11:16 Drug: fentaNYL (PF) IVP 50 mcg IVP once Route: IVP; Site: right forearm; aa5 11:20 Follow up: Response: No adverse reaction aa5 11:16 Drug: NS 0.9% IV (30 ml/kg) 30 ml/kg IV at bolus once; Sepsis Protocol; to be given as aa5 a bolus over 90 minutes Route: IV; Rate: bolus; Site: right forearm; 12:46 Follow up: IV Status: Completed infusion; IV Intake: 2789ml aa5 11:25 CANCELLED (Duplicate Order): acetaminophensuppository 650 mg [place] once eze 11:42 Drug: Acetaminophen PO 1000 mg PO once Route: PO; aa5 12:34 Follow up: Response: Temperature is decreased aa5 13:40 Drug: Piperacillin-Tazobactam IVPB 3.375 grams IVPB once over 60 mins; (mix in NS 100 aa5 mL) Route: IVPB; Infused Over: 60 mins; Site: right forearm; 14:10 Follow up: Response: No adverse reaction aa5 14:40 Follow up: Response: No adverse reaction; IV Status: Completed infusion aa5 14:41 Drug: Zithromax IVPB 500 mg IVPB once over 1 hrs; mix in 250 mL NS Route: IVPB; Infused aa5 Over: 1 hrs; Site: right forearm; 15:41 Follow up: IV Status: Completed infusion; IV Intake: 250ml aa5 14:41 Drug: Magnesium Sulfate IVPB 2 grams IVPB once over 2 hrs Route: IVPB; Infused Over: 2 aa5 hrs; Site: right forearm; 16:41 Follow up: IV Status: Completed infusion aa5 15:40 Drug: Solu-CORTEF IVP 100 mg IVP once Route: IVP; Site: right forearm; aa5 16:00 Follow up: Response: No adverse reaction aa5 15:46 Drug: morphine IVP or IV 2 mg IVP once over 4 mins Route: IVP; Infused Over: 4 mins; aa5 Site: right forearm; 16:00 Follow up: Response: No adverse reaction aa5 15:46 Drug: Ondansetron IVP 4 mg IVP once; over 2 minutes Route: IVP; Site: right forearm; aa5 16:00 Follow up: Response: No adverse reaction aa5 Medication: 13:01 VIS not applicable for this client. aa5 Intake: 12:46 IV: 2789ml; Total: 2789ml. aa5 15:41 IV: 250ml; Total: 3039ml. aa5 Outcome: 13:34 Decision to Hospitalize by Provider. eze 21:00 Admitted to Med/surg accompanied by tech, via stretcher, room 404, with oxygen, with al5 chart, 21:00 Condition: stable 21:00 Instructed on the need for admit, 21:01 Patient left the ED. al5 Signatures: Dispatcher [employer] EDND Raymundo Díaz MD MD cha Calderon, Audri, RN RN aa5 Nicolle Norman Amanda, RN RN al5 Corrections: (The following items were deleted from the chart) 16:22 10:10 General: Appears uncomfortable, Behavior is calm, cooperative, Pt noted to be aa5 shaking, reports chills. . aa5 16:57 10:41 BP 174 / 95 R Arm; aa5 aa5 16:57 11:19 Temp 103F Oral; aa5 aa5 16:57 12:33 Temp 100F Oral; aa5 aa5 16:57 14:00 Temp 99.5F Oral; aa5 aa5
[2024-01-29 14:01] LABS: SARS-CoV-2 Antigen CONTROL BLUE LINE VIS/BG OK; SARS-CoV-2 Antigen Rapid Res Negative (Negative)
[2024-01-29 14:03] LABS: Specific Gravity 1.019 (1.005-1.030); Sqamous Epithelial <5 /HPF (None Seen); Urine Bacteria None Seen /HPF (<20); Urine Bilirubin NEGATIVE (Negative); Urine Blood Negative (Negative); Urine Clarity Clear (Clear); Urine Color Colorless (Yellow); Urine Crystals Unidentified Few /HPF (None Seen); Urine Culture Reflex Order NOT NEEDED; Urine Glucose 4+ (Over) (Negative); Urine Ketones NEGATIVE (Negative); Urine Microscopic Reflex YN ORDER UMIC; Urine Nitrite NEGATIVE (Negative); Urine Protein NEGATIVE (Negative); Urine RBC <5 /HPF (None Seen); Urine Urobilinogen Normal (Normal); Urine WBC <5 /HPF (<5); Urine pH 7.5 (5.0-7.0)
[2024-01-29] MEDS ORDERED: NA CHLORIDE 0.9% 250 ML ONE (14:03)
[2024-01-29] MEDS ORDERED: AZITHROMYCIN 500 MG INJ IVPB ONE (14:03)
[2024-01-29] MEDS ORDERED: Magnesium Sulfate 2gm IVPB 2 G/50 ML BAG IV ONE (14:04)
[2024-01-29] MEDS ORDERED: MORPHINE 2 MG/ML SYR IV PRN (14:51)
--- NOTE | 2024-01-29 14:53 | P.HP ---
Certification for Inpatient Patient admitted to: Inpatient With expected LOS: >2 Midnights Practitioner: I am a practitioner with admitting privileges, knowledge of patient current condition, hospital course, and medical plan of care. Services: Services provided to patient in accordance with Admission requirements found in Title 42 Section 412.3 of the Code of Federal Regulations Patient History Date of Service: 01/29/24 Reason for admission: Sepsis 2/2 pna History of Present Illness: Margarette Schmidt is a 58 year old female with pmhx Asthma, DM, hypertension and chronic knee pain who presents to the ED with complaints of nausea, vomiting, weakness, shortness of breath, and left lateral thoracic pain that started this morning. While in the ED she is found to have a temperature of 103, white blood cell 17.3, heart rate 107 and chest x-ray revealed "Mild patchy opacity is noted in the left lung, greatest in the left perihilar region suspicious for infection/pneumonia. The lungs are otherwise clear. The heart is upper limit of normal in size. No displaced fractures identified." CT chest abdomen pelvis reports "Small area of lung consolidation in lingula could be infection/pneumonia. Mild liver cirrhosis." Ultrasound abdomen reports "Gallbladder: Normal. Bile ducts: No intrahepatic or extrahepatic biliary dilatation. Common bile duct measures 4 mm. Limited imaging of the liver shows no concerning finding." Margarette will be admitted to hospitalist service for further evaluation and treatment. Allergies promethazine [From Phenergan] Adverse Reaction (Verified 01/29/24 14:53) nausea - Past Medical/Surgical History -: HTN -: DM-NIDDM -: Asthma -: Chronic Knee Pain - Social History Smoking Status: Former smoker Alcohol use: No CD- Drugs: No Review of Systems General: Weakness Respiratory: Shortness of Breath Gastrointestinal: Nausea, Vomiting Musculoskeletal: Other (Left lateral chest pain) Physical Examination - Physical Exam General: Alert, In no apparent distress, Oriented x3 HEENT: Atraumatic, Normocephalic, PERRLA Neck: Supple, 2+ carotid pulse no bruit Respiratory: Clear to auscultation bilaterally, Normal air movement Cardiovascular: Normal pulses, Normal S1 S2, Irregular heart rate/rhythm (Tachycardic) Capillary refill: <2 Seconds Gastrointestinal: Normal bowel sounds, Soft and benign, Distended (obese) Musculoskeletal: No clubbing Integumentary: No rashes Neurological: Normal speech, Normal tone - Studies Laboratory Data (last 24 hrs) 01/29/24 01/29/24 01/29/24 10:35 10:35 10:35 WBC 17.30 H Hgb 12.9 Hct 42.5 Plt Count 215 PT 11.0 INR 0.98 Sodium 135 L Potassium 4.0 BUN 9 Creatinine 0.78 Glucose 185 H Magnesium 1.6 Total Bilirubin 0.4 AST 24 ALT 24 Alkaline Phosphatase 110 Lipase 33 Microbiology Data (last 24 hrs): 01/29/24 13:33 Nasopharnyx Influenza Type A Antigen Screen - Final 01/29/24 13:33 Nasopharnyx Influenza Type B Antigen Screen - Final Assessment and Plan - Plan Assessment and plan Sepsis secondary to Left sided pneumonia Acute hypoxic respiratory failure secondary to left sided pneumonia History of asthma -Sepsis criteria heart rate 105, WBC 17.3, temperature 103, pneumonia/UTI -chest x-ray revealed "Mild patchy opacity is noted in the left lung, greatest in the left perihilar region suspicious for infection/pneumonia. The lungs are otherwise clear. The heart is upper limit of normal in size. No displaced fractures identified." -Flu/COVID negative -3 liters NS and steroids given in the ED -Rocephin and azithromycin IV -nebulizer treatment -Oxygen protocol -Pain control Diabetes mellitus-NIDD -Accu-Chek with sliding scale insulin -Reported last A1c 6.0 HTN chronic knee pain -continue home medication DVT ppx lovenox full code LOS 2-3 days Discharge Plan: Home Plan to discharge in: 48 Hours - Advance Directives Does patient have a Living Will: No Does patient have a Durable POA for Healthcare: No
[2024-01-29] MEDS ORDERED: MORPHINE 2 MG/ML SYR ONE (15:36)
[2024-01-29] MEDS ORDERED: HYDROCORTISONE SUC 100 MG INJ ONE (15:36)
[2024-01-29 17:44] LABS: Thyroid Stimulating Hormone 0.982 uIU/mL (0.358-3.740)
[2024-01-29 22:06] VITALS: BMI 33.0
[2024-01-29] MEDS: ACETAMINOPHEN 325 MG TABLET PO PRN (23:59)
[2024-01-30 06:23] LABS: Absolute Lymphocytes (CBC) 1.4 K/uL (0.7-4.9); Absolute Monocytes 1.5 K/uL (0.1-1.3); Absolute Neutrophil 17.9 K/uL (1.8-8.0); Basophils % 0.1 % (0-1.3); Eosinophils % 0.2 % (0-4.4); Hemoglobin 11.7 g/dL (12.0-15.0); Lymphocytes % 6.8 % (15.3-44.8); MCH 24.2 pg (27.0-35.0); MCHC 30.9 g/dL (32.0-36.0); MCV 78.3 fL (80-100); MPV 8.7 fL (7.6-11.3); Monocytes % 7.3 % (3.3-12.3); Neutrophils % 85.6 % (41.7-73.7); Platelets 191 thou/uL (152-406); RBC Red Blood Cell Count 4.86 M/uL (3.86-4.86); Red Cell Distribution Width 16.3 % (12.1-15.2)
[2024-01-30 06:33] LABS: Anion Gap 6.7 mEq/L (5.0-15.0); Magnesium 2.4 mg/dL (1.6-2.4); Phosphorus 3.4 mg/dL (2.5-4.9); Potassium 3.7 mEq/L (3.5-5.1)
[2024-01-30] MEDS: CEFTRIAXONE 1,000 MG in NA CHLORIDE 0.9% 50 ML IVPB SCH ×2 (08:00→16:26)
[2024-01-30] MEDS: POTASSIUM CL SA 10 MEQ TAB PO ONE (08:01)
[2024-01-30] MEDS: ENOXAPARIN 40 MG/0.4 ML SQ SCH (08:01)
[2024-01-30] MEDS: AZITHROMYCIN IV 500 MG in NA CHLORIDE 0.9% 250 ML IVPB SCH (08:01)
[2024-01-30] MEDS ORDERED: BENZONATATE 100 MG CAP PO PRN (09:31)
[2024-01-30] MEDS ORDERED: GUAIFENESIN/CODEINE 5ML UCUP PO PRN (09:31)
[2024-01-30 09:33] LABS: Band Neutrophils 2 % (0-1); Blood Morphology Comment NOT SEEN (NOT SEEN); Differential Total Cells Count 100; Eosinophils 1 % (0-3); Lymphocytes 12 % (15-42); Monocytes 1 % (0-10); Platelet Estimate ADEQ; Segmented Neutrophils 83 % (40-80)
[2024-01-30] MEDS: HYDROCODONE/APAP 7.5/325 MG TAB PO PRN (10:11)
--- NOTE | 2024-01-30 13:53 | P.PN ---
Date of Service: 01/30/24 Subjective Reports feeling better, febrile OVN, continues to cough No acute distress, appear better this morning Remains on RA Started levaquin ROS 10 point ROS as noted above, otherwise negative Physical Exam General: Alert and Oriented x3, NAD HEENT: Atraumatic, Normocephalic, PERRLA Neck: Supple, 2+ carotid pulse no bruit Respiratory: Clear to auscultation bilaterally, Normal air movement, on RA Cardiovascular: Normal pulses, Normal S1 S2, RRR Capillary refill: <2 Seconds Gastrointestinal: Normal bowel sounds, Soft on palpation, Distended (obese) Musculoskeletal: No clubbing Integumentary: No rashes Neurological: Normal speech, Normal tone Vitals Reviewed Problem list Sepsis secondary to Left sided pneumonia Acute hypoxic respiratory failure secondary to left sided pneumonia History of asthma Diabetes mellitus-NIDDM HTN chronic knee pain Plan Sepsis secondary to Left sided pneumonia Acute hypoxic respiratory failure secondary to left sided pneumonia History of asthma -Sepsis criteria heart rate 105, WBC 17.3, temperature 103, pneumonia/UTI -chest x-ray revealed "Mild patchy opacity is noted in the left lung, greatest in the left perihilar region suspicious for infection/pneumonia. The lungs are otherwise clear. The heart is upper limit of normal in size. No displaced fractures identified." -Flu/COVID negative -3 liters NS and steroids given in the ED -Started levaquin and stopped Rocephin and azithromycin IV -nebulizer treatment -Oxygen protocol -Pain control Diabetes mellitus-NIDDM -Accu-Chek with sliding scale insulin -Reported last A1c 6.0 HTN chronic knee pain -continue home medication DVT ppx lovenox full code LOS 2-3 days <Melinda Funes - Last Filed: 01/30/24 13:46> Patient seen and examined, plan of care discussed with Shirlene Marin. Patient had a fever up to 103 last night. She reported no significant improvement from yesterday. Leukocytosis trended up. Plan: Continue IV Levaquin Add IV Rocephin. Chest physiotherapy Wean oxygen as tolerated. Increase activity as tolerated. <jeremy marroquin - Last Filed: 01/31/24 14:30>
[2024-01-30] MEDS: Levofloxacin 750mg IV 750 MG/150 ML BAG IV SCH (14:11)
[2024-01-31 06:50] LABS: Absolute Eosinophils 0.1 K/uL (0-0.5); Absolute Lymphocytes (CBC) 1.5 K/uL (0.7-4.9); Absolute Monocytes 0.8 K/uL (0.1-1.3); Absolute Neutrophil 11.3 K/uL (1.8-8.0); Basophils % 0.2 % (0-1.3); Eosinophils % 0.7 % (0-4.4); Hematocrit 38.6 % (36.0-45.0); Hemoglobin 11.6 g/dL (12.0-15.0); Lymphocytes % 11.2 % (15.3-44.8); MCH 23.5 pg (27.0-35.0); MCV 78.4 fL (80-100); MPV 8.7 fL (7.6-11.3); Monocytes % 5.6 % (3.3-12.3); Neutrophils % 82.3 % (41.7-73.7); Platelets 195 thou/uL (152-406); RBC Red Blood Cell Count 4.93 M/uL (3.86-4.86); Red Cell Distribution Width 16.7 % (12.1-15.2)
[2024-01-31 07:19] LABS: Anion Gap 9.2 mEq/L (5.0-15.0); Phosphorus 2.5 mg/dL (2.5-4.9)
[2024-01-31 07:21] LABS: Magnesium 2.1 mg/dL (1.6-2.4); Potassium 4.2 mEq/L (3.5-5.1)
--- NOTE | 2024-01-31 09:33 | P.PN ---
Date of Service: 01/31/24 Subjective Breathing better today Some nausea and an episode of vomiting overnight Tolerating RA with breakfast IV infiltrated ROS 10 point ROS as noted above, otherwise negative Physical Exam General: Alert and Oriented x3, NAD HEENT: Atraumatic, Normocephalic, PERRLA Neck: Supple, 2+ carotid pulse no bruit Respiratory: Clear to auscultation bilaterally, Normal air movement, on RA Cardiovascular: Normal pulses, Normal S1 S2, RRR Capillary refill: <2 Seconds Gastrointestinal: Normal bowel sounds, Soft on palpation, Distended (obese) Musculoskeletal: No clubbing Integumentary: No rashes Neurological: Normal speech, Normal tone Vitals Reviewed Problem list Sepsis secondary to Left sided pneumonia Acute hypoxic respiratory failure secondary to left sided pneumonia History of asthma Diabetes mellitus-NIDDM HTN chronic knee pain Plan Sepsis secondary to Left sided pneumonia Acute hypoxic respiratory failure secondary to left sided pneumonia History of asthma -Flu/COVID negative -Started levaquin and stopped Rocephin and azithromycin IV -nebulizer treatment PRN -Oxygen protocol PRN-wean as tolerated Diabetes mellitus-NIDDM -Accu-Chek with sliding scale insulin -Reported last A1c 6.0 HTN chronic knee pain -continue home medication DVT ppx lovenox full code LOS 1-2 days <Micah Hernandez - Last Filed: 01/31/24 09:31> Patient seen and examined. Plan of care discussed with Micah Hernandez. Patient reports generalized bodily pains. No fever overnight. She is requiring 2 L oxygen by nasal cannula. Plan: Continue IV Levaquin. Wean off oxygen as tolerated Bronchodilators as needed. Increase activity as tolerated. <jeremy marroquin - Last Filed: 01/31/24 15:17>
[2024-02-01] MEDS: HYDRALAZINE HCL 20 MG/ML VIAL IV PRN (05:40)
[2024-02-01 06:25] LABS: Absolute Basophils 0.1 K/uL (0-0.5); Absolute Eosinophils 0.2 K/uL (0-0.5); Absolute Lymphocytes (CBC) 2.3 K/uL (0.7-4.9); Absolute Monocytes 0.9 K/uL (0.1-1.3); Absolute Neutrophil 6.9 K/uL (1.8-8.0); Basophils % 0.6 % (0-1.3); Eosinophils % 1.7 % (0-4.4); Hematocrit 42.4 % (36.0-45.0); Hemoglobin 12.8 g/dL (12.0-15.0); Lymphocytes % 22.2 % (15.3-44.8); MCH 23.6 pg (27.0-35.0); MCHC 30.1 g/dL (32.0-36.0); MCV 78.3 fL (80-100); MPV 8.7 fL (7.6-11.3); Monocytes % 8.8 % (3.3-12.3); Neutrophils % 66.7 % (41.7-73.7); Nucleated Red Blood Cells % 0.2 % (0-0); Platelets 272 thou/uL (152-406); RBC Red Blood Cell Count 5.42 M/uL (3.86-4.86); Red Cell Distribution Width 16.9 % (12.1-15.2)
[2024-02-01 06:38] LABS: Magnesium 2.2 mg/dL (1.6-2.4); Phosphorus 3.1 mg/dL (2.5-4.9)
--- NOTE | 2024-02-01 09:17 | P.PN ---
Date of Service: 02/01/24 Subjective Breathing better today Tolerating RA with breakfast Clinically improving ROS 10 point ROS as noted above, otherwise negative Physical Exam General: Alert and Oriented x3, NAD HEENT: Atraumatic, Normocephalic, PERRLA Neck: Supple, 2+ carotid pulse no bruit Respiratory: Clear to auscultation bilaterally, Normal air movement, on RA Cardiovascular: Normal pulses, Normal S1 S2, RRR Capillary refill: <2 Seconds Gastrointestinal: Normal bowel sounds, Soft on palpation, Distended (obese) Musculoskeletal: No clubbing Integumentary: No rashes Neurological: Normal speech, Normal tone Vitals Reviewed Problem list Sepsis secondary to Left sided pneumonia Acute hypoxic respiratory failure secondary to left sided pneumonia History of asthma Diabetes mellitus-NIDDM HTN chronic knee pain Plan Sepsis secondary to Left sided pneumonia Acute hypoxic respiratory failure secondary to left sided pneumonia History of asthma -Flu/COVID negative -Started levaquin and stopped Rocephin and azithromycin IV -nebulizer treatment PRN -Oxygen protocol PRN-wean as tolerated -/ blood culture positive with gram-positive cocci in clusters, coagulase negative Possible contaminant but given fevers will repeat a set today and wait till tomorrow Diabetes mellitus-NIDDM -Accu-Chek with sliding scale insulin -Reported last A1c 6.0 HTN chronic knee pain -continue home medication DVT ppx lovenox full code LOS 1-2 days
--- NOTE | 2024-02-01 13:45 | EKG ---
Test Date: 2024-01-29 Test Time: 10:33:37 [employer] Digger: [place] MEASUREMENT RESULTS: Intervals: Rate: 105 WA: 186 QRSD: 116 QT: 366 QTc: 483 [place]: P: 71 WA: 186 QRS: 53 T: 88 INTERPRETIVE STATEMENTS: Sinus tachycardia Incomplete left bundle branch block Borderline ECG No previous ECG available for comparison Electronically Signed On 02-01-24 13:38:09 [employer] PROFESS[employer] by Curry Solano
[2024-02-02 05:51] LABS: Absolute Eosinophils 0.2 K/uL (0-0.5); Absolute Lymphocytes (CBC) 1.7 K/uL (0.7-4.9); Absolute Monocytes 0.9 K/uL (0.1-1.3); Absolute Neutrophil 5.5 K/uL (1.8-8.0); Basophils % 0.6 % (0-1.3); Eosinophils % 2.3 % (0-4.4); Hematocrit 40.9 % (36.0-45.0); Hemoglobin 12.7 g/dL (12.0-15.0); Lymphocytes % 20.4 % (15.3-44.8); MCV 77.3 fL (80-100); MPV 8.5 fL (7.6-11.3); Neutrophils % 65.7 % (41.7-73.7); Platelets 239 thou/uL (152-406); Red Cell Distribution Width 16.9 % (12.1-15.2)
[2024-02-02 06:07] LABS: Anion Gap 10.7 mEq/L (5.0-15.0); Phosphorus 5.2 mg/dL (2.5-4.9); Potassium 3.7 mEq/L (3.5-5.1)
[2024-02-02] MEDS: POTASSIUM CL SA 10 MEQ TAB PO ONE (07:51)
--- NOTE | 2024-02-02 08:14 | P.DS ---
Admission Date: 01/29/24 Discharge Date: 02/02/24 Disposition: ROUTINE DISCHARGE Discharge Condition: GOOD Reason for Admission: Sepsis 2/2 pna Brief History of Present Illness: Margarette Schmidt is a 58 year old female with pmhx Asthma, DM, hypertension and chronic knee pain who presents to the ED with complaints of nausea, vomiting, weakness, shortness of breath, and left lateral thoracic pain that started this morning. While in the ED she is found to have a temperature of 103, white blood cell 17.3, heart rate 107 and chest x-ray revealed "Mild patchy opacity is noted in the left lung, greatest in the left perihilar region suspicious for infection/pneumonia. The lungs are otherwise clear. The heart is upper limit of normal in size. No displaced fractures identified." Hospital Course: Problem list Sepsis secondary to Left sided pneumonia Acute hypoxic respiratory failure secondary to left sided pneumonia History of asthma Diabetes mellitus-NIDDM HTN chronic knee pain Patient was admitted to the hospital for pneumonia, sepsis, hypoxia with likely mild asthma exacerbation. She was treated with IV antibiotics, IV fluids, steroids and had improvement in her symptoms. She has not been afebrile for greater than 48 hours, blood cultures were obtained with 1 out of 4 positive for staph epidermidis which is likely contaminant. Patient is clinically improved and is stable for discharge at this time. Please follow-up with your primary care doctor in 1 week Prescription for levofloxacin 750 mg by mouth once daily for 5 additional days sent to the pharmacy [facility] Also sent refills for albuterol inhaler. Order placed for bedside commode as well. You should also follow-up with pulmonologyDr. Phelps, his information will be provided at discharge. Vital Signs/Physical Exam: Temp Pulse Resp BP Pulse Ox 97.4 F 98 H 18 145/80 H 96 02/02/24 04:00 02/02/24 04:00 02/02/24 04:00 02/02/24 04:00 02/02/24 04:00 General: Alert, In no apparent distress, Oriented x3 HEENT: Atraumatic, PERRLA Neck: Supple, JVD not distended Respiratory: Clear to auscultation bilaterally, Normal air movement Cardiovascular: Regular rate/rhythm, Normal S1 S2 Gastrointestinal: Normal bowel sounds, No tenderness Musculoskeletal: No tenderness Integumentary: No rashes Neurological: Normal speech, Normal tone, Normal affect Laboratory Data at Discharge: WBC 8.40 thou/uL (4.3-10.9) 02/02/24 05:19 Hgb 12.7 g/dL (12.0-15.0) 02/02/24 05:19 Hct 40.9 % (36.0-45.0) 02/02/24 05:19 Plt Count 239 thou/uL (152-406) 02/02/24 05:19 PT 11.0 SECONDS (9.4-12.5) 01/29/24 10:35 INR 0.98 01/29/24 10:35 Sodium 139 mEq/L (136-145) 02/02/24 05:19 Potassium 3.7 mEq/L (3.5-5.1) 02/02/24 05:19 BUN 17 mg/dL (7-18) 02/02/24 05:19 Creatinine 0.69 mg/dL (0.55-1.02) 02/02/24 05:19 Glucose 164 mg/dL (74-106) H 02/02/24 05:19 Phosphorus 5.2 mg/dL (2.5-4.9) H 02/02/24 05:19 Magnesium 2.0 mg/dL (1.6-2.4) 02/02/24 05:19 Total Bilirubin 0.4 mg/dL (0.2-1.0) 01/29/24 10:35 AST 24 U/L (15-37) 01/29/24 10:35 ALT 24 U/L (13-56) 01/29/24 10:35 Alkaline Phosphatase 110 U/L (45-117) 01/29/24 10:35 Lipase 33 U/L (13-75) 01/29/24 10:35 Home Medications: Amlodipine [Norvasc*] 10 mg PO DAILY 02/01/24 Apixaban [Eliquis *] 2.5 mg PO BID 02/01/24 Atorvastatin Calcium [Lipitor*] 20 mg PO BEDTIME 02/01/24 Empagliflozin [Jardiance] 25 mg PO DAILY 02/01/24 Metformin ER [Glucophage ER*] 1,000 mg PO BIDWM 02/01/24 Pantoprazole Sodium [Protonix] 40 mg PO DAILY 02/01/24 Sertraline HCl 100 mg PO DAILY 02/01/24 Spironolactone [Aldactone*] 25 mg PO DAILY 02/01/24 carvediloL [Carvedilol] 6.25 mg PO BID 02/01/24 Albuterol Inhaler [Ventolin Inhaler*] 2 puff IH Q6H PRN #2 inh 02/02/24 levoFLOXacin [Levaquin*] 750 mg PO DAILY 5 Days #5 tab 02/02/24 New Medications: levoFLOXacin [Levaquin*] 750 mg PO DAILY 5 Days #5 tab Albuterol Inhaler [Ventolin Inhaler*] 2 puff IH Q6H PRN #2 inh PRN Reason: Shortness Of Breath Physician Discharge Instructions: Patient was admitted to the hospital for pneumonia, sepsis, hypoxia with likely mild asthma exacerbation. She was treated with IV antibiotics, IV fluids, steroids and had improvement in her symptoms. She has not been afebrile for greater than 48 hours, blood cultures were obtained with 1 out of 4 positive for staph epidermidis which is likely contaminant. Patient is clinically improved and is stable for discharge at this time. Please follow-up with your primary care doctor in 1 week Prescription for levofloxacin 750 mg by mouth once daily for 5 additional days sent to the pharmacy [facility] Also sent refills for albuterol inhaler. Order placed for bedside commode as well. You should also follow-up with pulmonologyDr. Lenin, his information will be provided at discharge. Diet: Regular Activity: Ad liliana Followup: Nehemiah Phelps MD [ACTIVE - CAN ADMIT] - 1 Week Yvette Meyer DO [Primary Care Provider] - 1 Week Time spent managing pt's care (in minutes): 41
[2024-02-02 08:20] VITALS: BP 136/78; TEMP 98
[2024-02-02 09:56] VITALS: O2SAT 94
== END 2024-02-02 10:48 | disposition home or self-care (01) | DRG 871 ==
LOC: ER 10:06 → ERHOLD 14:33 → 4TH 19:30
PROVIDERS: ADMIT Internal Medicine; ATTEND Internal Medicine
DX: A41.9 Sepsis, unspecified organism (principal); J18.9 Pneumonia, unspecified organism; J96.01 Acute respiratory failure with hypoxia; J45.901 Unspecified asthma with (acute) exacerbation; I10 Essential (primary) hypertension; E11.9 Type 2 diabetes mellitus without complications; E66.9 Obesity, unspecified; G89.29 Other chronic pain; M25.569 Pain in unspecified knee; Z88.5 Allergy status to narcotic agent; Z88.8 Allergy status to other drugs, medicaments and biological substances; Z68.33 Body mass index [BMI] 33.0-33.9, adult; Z11.52 Encounter for screening for COVID-19; Z79.01 Long term (current) use of anticoagulants; Z79.84 Long term (current) use of oral hypoglycemic drugs; Z79.02 Long term (current) use of antithrombotics/antiplatelets; Z79.899 Other long term (current) drug therapy; Z87.891 Personal history of nicotine dependence
CPT/HCPCS: 36415; 71045; 71250; 74176; 76705; 80048; 80076; 81001; 82947; 83605; 83690; 83735; 83880; 84100; 84439; 84443; 84484; 85025; 85610; 87040; 87077; 87186; 87205; 87804; 87811; 93005; 96365; 96366; 96367; 96368; 96375; 99285; J0360; J0696; J1650; J1720; J2270; J2405; J2543; J3010; J3475; J7030; J7050